=== PATIENT | male | born 1970 | race African-American/Black ===

== ENCOUNTER → 2017-09-16 | Outpatient (CLI) | payer BC | END | disposition home or self-care (01) | LOC: VAS 10:52 | DX: R60.0 Localized edema (principal); M79.662 Pain in left lower leg; M79.661 Pain in right lower leg | CPT/HCPCS: 93970 ==

== ENCOUNTER 2018-03-04 08:34 | Day surgery (SDC) | payer BC ==
[2018-03-04] MEDS ORDERED: LIDOCAINE 4% SOLUTION 50 ML BTL (10:41)
[2018-03-04] MEDS ORDERED: FENTAnyl 50 MCG/ML VIAL (11:14)
[2018-03-04] MEDS ORDERED: MIDAZOLAM 1 MG/ML 2 ML INJ ×2 (11:14)
== END 2018-03-04 11:50 | disposition home or self-care (01) ==
LOC: GIL 08:34
DX: K29.30 Chronic superficial gastritis without bleeding (principal)
CPT/HCPCS: 43239; 88305; 88312